=== PATIENT | female | born 1990 | race Caucasian/White ===

== ENCOUNTER 2018-07-14 11:59 | Emergency (ER) | payer MEDICAID ==
[2018-07-14 12:47] LABS: Influenza A Molecular POSITIVE (Negative)
--- NOTE | 2018-07-14 13:11 | UC ---
FLU HPI - HPI Summary HPI Summary: Patient has had flulike symptoms for the past 2 days. She is 6 days late for her menstrual period and is not on control. - History of Current Complaint Chief Complaint: UCRespiratory Stated Complaint: BODYACHES FEVER Time Seen by Provider: 07/14/18 12:32 Hx Obtained From: Patient Hx Last Menstrual Period: 06/08/18 ?: No - urine test here is negative although patient is 6 days late for h Onset/Duration: Sudden Onset Severity Currently: Moderate Severity Initially: Moderate Pain Intensity: 5 Associated Signs & Symptoms: Positive: Fever, Myalgia, Cough, Sore Throat, Nasal Congestion Related Hx: Possible Flu/Infectious Exposure - Recent daughter had the flu last week - Allergy/Home Medications Allergies/Adverse Reactions: Allergies Allergy/AdvReac Type Severity Reaction Status Date / Time amoxicillin Allergy Severe Hives Verified 07/14/18 12:10 blueberry Allergy Severe rash, Verified 07/14/18 12:12 throat closes Adhesive Tape [Paper Tape] Allergy Unknown Rash Verified 07/14/18 12:12 latex Allergy Rash Verified 07/14/18 12:12 cough supressants Allergy Severe Hives Uncoded 07/14/18 12:12 Home Medications: Home Medications Albuterol HFA INHALER* [Ventolin HFA Inhaler*] 2 puff INH Q4H PRN 07/14/18 [ History Confirmed 07/14/18] Cholecalciferol TAB* [Vitamin D TAB*] 1,000 unit PO WEEKLY 07/14/18 [History Confirmed 07/14/18] Escitalopram Oxalate [Lexapro 10 mg] 10 mg PO DAILY 07/14/18 [History Confirmed 07/14/18] Ibuprofen TAB* [Advil TAB*] 800 mg PO Q6H PRN 07/14/18 [History Confirmed ] tiZANidine TAB* [Zanaflex TAB*] 2 mg PO TID PRN 07/14/18 [History Confirmed ] PMH/Surg Hx/FS Hx/Imm Hx Previously Healthy: Yes GI/ History: Other - Surgical History Surgical History: Yes Surgery Procedure, Year, and Place: LEFT OVARY REMOVAL. 4 C-SECTIONS - Social History Alcohol Use: Rare Substance Use Type: None Smoking Status (MU): Light Every Day Tobacco Smoker Type: Cigarettes Amount Used/How Often: 4-6 CIGS A DAY Review of Systems All Other Systems Reviewed And Are Negative: Yes Constitutional: Positive: Fever, Chills Skin: Positive: Negative Eyes: Positive: Negative ENT: Positive: Sore Throat, Nasal Discharge Respiratory: Positive: Cough. Negative: Shortness Of Breath Cardiovascular: Positive: Negative Gastrointestinal: Positive: Negative Genitourinary: Positive: Negative, Other - Menstrual period is late. She is no control. Motor: Positive: Negative Neurovascular: Positive: Negative Musculoskeletal: Positive: Myalgia Neurological: Positive: Negative Psychological: Positive: Negative Is Patient Immunocompromised?: No Physical Exam Triage Information Reviewed: Yes Appearance: Well-Appearing, No Pain Distress, Well-Nourished Vital Signs: Initial Vital Signs Temp 98.9 F 07/14/18 12:16 Pulse 88 07/14/18 12:16 Resp 16 07/14/18 12:16 BP 103/72 07/14/18 12:16 Pulse Ox 98 07/14/18 12:16 Vital Signs Reviewed: Yes Eye Exam: Normal ENT: Positive: Pharynx normal, Nasal congestion, Nasal drainage - Her nasal coryza, TMs normal, Uvula midline. Negative: Trismus, Muffled voice Neck exam: Normal Neck: Positive: Supple, Nontender, No Lymphadenopathy Respiratory Exam: Normal Respiratory: Positive: Lungs clear, Normal breath sounds, No respiratory distress, No accessory muscle use Cardiovascular Exam: Normal Cardiovascular: Positive: RRR, No Murmur, Pulses Normal, Brisk Capillary Refill Abdomen Description: Positive: Nontender, No Organomegaly, Soft Bowel Sounds: Positive: Present Musculoskeletal Exam: Normal Musculoskeletal: Positive: Strength Intact, ROM Intact Neurological Exam: Normal Neurological: Positive: Alert, Muscle Tone Normal Psychological Exam: Normal Skin Exam: Normal Flu Course/Dx - Course Course Of Treatment: She has been comfortable here. Her rapid flu test was positive, urine test was negative. She would prefer not to be treated with flu with Tamiflu and treat symptomatically. - Differential Dx/Diagnosis Provider Diagnosis: Influenza Discharge - Sign-Out/Discharge Documenting (check all that apply): Patient Departure All imaging exams completed and their final reports reviewed: No Studies - Discharge Plan Condition: Fair Disposition: HOME Patient Education Materials: Influenza (DC) Referrals: Jacqui York PA [Primary Care Provider] - Additional Instructions: Increase fluids may take Tylenol every 4 hours for fever or pain. Follow up with her primary care provider in 3-4 days if no improvement. - Billing Disposition and Condition Condition: FAIR Disposition: Home
== END 2018-07-14 13:21 | disposition home or self-care (01) ==
LOC: UCCORT 11:59
DX: J11.1 Influenza due to unidentified influenza virus with other respiratory manifestations (principal); F17.210 Nicotine dependence, cigarettes, uncomplicated; Z88.0 Allergy status to penicillin; Z91.018 Allergy to other foods; Z91.09 Other allergy status, other than to drugs and biological substances; Z88.8 Allergy status to other drugs, medicaments and biological substances; Z91.040 Latex allergy status
CPT/HCPCS: 84702; 99201; G0463